=== PATIENT | female | born 1990 ===

== ENCOUNTER → 2025-07-28 | Outpatient (CLI) | payer BC, SELFPAY ==
[2025-07-28 12:13] LABS: Collection Type, Urine Clean Catch
[2025-07-28 12:32] LABS: Basophils # (Auto) 0.0 Thou/mm3 (0.0-0.2); Basophils % (Auto) 0 % (0-2.5); Eosinophils # (Auto) 0.1 Thou/mm3 (0.0-0.5); Eosinophils % (Auto) 1 % (0-10); Hematocrit 39.5 % (36.0-46.0); Hemoglobin 12.3 g/dL (12.0-16.0); Immature Granulocytes Auto 0.06 Thou/mm3 (0.00-0.00); Lymphocytes # (Auto) 2.1 Thou/mm3 (1.0-4.8); Lymphocytes % (Auto) 26 % (10-50); Mean Corpuscular HGB Conc 31.1 g/dl (31.0-37.0); Mean Corpuscular Hemoglobin 24.6 pg (25.0-35.0); Mean Corpuscular Volume 79 fL (80-100); Monocytes # (Auto) 0.3 Thou/mm3 (0.0-0.8); Monocytes % (Auto) 4 % (0-12); Neutrophils # (Auto) 5.5 Thou/mm3 (1.8-7.7); Neutrophils % (Auto) 69 % (37-80); Nucleated Red Blood Cell # 0.00 Thou/mm3 (0.00-0.00); Nucleated Red Blood Cell % 0 /100 WBC (0); Platelet Count 218 Thou/mm3 (140-440); RDW Standard Deviation 41.8 fL (36.4-46.3); Red Blood Count 5.01 Miln/mm3 (4.00-5.20); White Blood Count 7.9 Thou/mm3 (3.6-11.0)
[2025-07-28 12:39] LABS: Glucose Estimated Average 192 mg/dL (80-131); Hemoglobin A1C 8.3 % Hgb (4.8-6.0)
[2025-07-28 12:44] LABS: Bilirubin,Urine Negative (Negative); Blood,Urine 3+ (Negative); Clarity,Urine Clear (Clear/Hazy); Color,Urine Lt-Yellow (Lt Yel-Yel); Culture Indicated,Urine Not Indicated; Glucose, Urine Negative (Negative); Ketones,Urine Negative (Negative); Leukocyte Esterase,Urine Negative (Negative); Nitrite,Urine Negative (Negative); PH,Urine 7.0 (5.0-7.0); Protein,Urine Negative (Neg - Trace); RBC,Urine 2 /hpf (0-3); Specific Gravity,Urine 1.012 (1.001-1.035); Squamous Epithelial Cell,Urine 5 /hpf (0-5); Urobilinogen,Urine Negative mg/dL (0.0-1.0); WBC,Urine 2 /hpf (0-5)
[2025-07-28 12:46] LABS: Alanine Aminotransferase 47 U/L (10-49); Albumin, Serum 4.1 gm/dL (3.5-5.0); Albumin/Globulin Ratio 2.2 (1.2-2.2); Alkaline Phosphatase 57 U/L (46-116); Anion Gap 8 (7-16); Aspartate Amino Transferase 38 U/L (0-34); BUN/Creatinine Ratio 13 Ratio (12-20); Bilirubin,Total 0.3 mg/dL (0.3-1.2); Blood Urea Nitrogen 8 mg/dL (9-23); Calcium 9.3 mg/dL (8.3-10.6); Calcium (Corrected) 9.3 mg/dL (8.5-10.1); Carbon Dioxide 25.6 mMol/L (20.0-31.0); Cardiac Risk Estimate 3.8 RATIO (3.7-5.6); Chloride 105 mMol/L (98-107); Cholesterol 199 mg/dL (132-200); Creatinine (Component) 0.6 mg/dL (0.6-1.3); Globulin 1.9 gm/dL (2.3-3.5); Glucose 156 mg/dL (74-106); HDL Cholesterol 53 mg/dL (40-60); LDL Cholesterol,Calculated 122 mg/dL (0-130); Osmolality,Calculated 278 (275-295); Potassium 4.3 mMol/L (3.4-5.1); Sodium 139 mMol/L (136-145); Thyroid Stimulating Hormone 0.67 uIU/mL (0.55-4.78); Total Protein 6.0 gm/dL (5.7-8.2); Triglycerides 122 mg/dL (30-150); eGFR > 60 See Note
[2025-07-28 12:48] LABS: Vitamin D 25 Hydroxy Total 12.9 ng/mL (7.3-40.2)
== END | disposition home or self-care (01) ==
PROVIDERS: PCP Family Medicine; Referring Provider Registered Nurse; Visit Provider Registered Nurse
DX: Z00.00 Encounter for general adult medical examination without abnormal findings (principal)
CPT/HCPCS: 36415; 80053; 80061; 81001; 82306; 83036; 84443; 85025

== ENCOUNTER 2025-09-12 11:10 | Emergency (ER) | payer BC, SELFPAY ==
[2025-09-12 11:34] VITALS: BP 132/80; PULSE 65; RESP 18; TEMP 36.8; O2SAT 97; BMI 43.1
--- NOTE | 2025-09-12 13:08 | XR_ITS ---
Examination: CT abdomen with intravenous contrast CT pelvis with intravenous contrast 2-D coronal reconstructions 2-D sagittal reconstructions Date and time of exam: September 12, 2025, 1534 hours INDICATIONS: Right lower quadrant abdominal pain beginning yesterday. CTDI: vol (mGy) 11.6 DLP: (mGycm) 629 Technique: Multiple axial sections of the abdomen and pelvis have been obtained. 64 slice high-resolution scanner used. 3 mm axial sections have been obtained, post intravenous injection 60 cc [id number] 2-D sagittal, coronal reconstructions obtained. Low dose protocols were performed. One or more of the following dose reduction techniques were used; automated exposure control, adjustment of the mA and/or KV according to patient size, use of iterative reconstruction technique. Findings: Significant hepatomegaly, 24 cm, diffuse fatty infiltration throughout the liver Splenomegaly 14 cm Contracted gallbladder No pancreatic or adrenal mass. No renal or ureteral calculi, no hydronephrosis Aorta normal size Normal appendix No bowel obstruction No diverticulitis Anteverted uterus No adnexal or uterine mass Contracted urinary bladder The osseous structures are intact IMPRESSION: Hepatomegaly, 24 cm diffuse fatty infiltration throughout the liver, splenomegaly 14 cm No gallstones, no common bile duct stones noted Negative for pancreatitis No renal or ureteral calculi, no hydronephrosis Normal appendix
--- NOTE | 2025-09-12 13:09 | EDNOTE_ITS ---
ED Abdominal Pain RME/HPI General Chief Complaint: Abdominal Pain Stated complaint: RUQ PAIN SINCE YESTERDAY Time seen by provider: 09/12/25 12:44 Arrival date/time: 09/12/25 11:10 35-year-old female patient came in for evaluation regarding right lower quadrant pain. Patient had a right lower quadrant pain since yesterday, described as dull ache, severity moderate. Patient denies any fever no vomiting no diarrhea no constipation no dysuria no hematuria. Patient was recently diagnosed with diabetes mellitus. No other complaints noted. Related Data Home Medications ?Medication ?Instructions ?Recorded ?Confirmed ferrous sulfate 325 mg (65 mg 325 mg PO BID 09/18/18 1 11/18/17 iron) tablet (iron) vit no.95-ferrous 1 tab PO QDAY 09/18/1808/30 fumarate 28 mg-folic acid 800 mcg tablet () Previous Rx's ?Medication ?Instructions ?Recorded hydrocodone 5 mg-acetaminophen 300 1 tab PO QID PRN pa in #20 tabs 09/25/18 mg tablet (Vicodin) docusate sodium 100 mg capsule 100 mg PO BID #20 caps 09/27/18 (Colace) ibuprofen 800 mg tablet 800 mg PO TID PRN pain #30 t abs 09/27/18 butenafine 1 % topical cream 1 applicatio topical BID #30 grams 11/02/19 itraconazole 200 mg tablet 200 mg PO BID #14 tabs 03/17 dicyclomine 20 mg tablet 20 mg PO QID PRN abdominal p ain 09/12/25 #30 tabs polyethylene glycol 3350 17 gram 17 g PO QDAY PRN cons tipation #14 09/12/25 oral powder packet (Miralax) ea Allergies Allergy/AdvReac Type Severity Reaction Status Date / Time No Known Allergies Allergy Verified 09/12/25 11:13 Review of Systems Review of Systems Narrative Review of Systems: Review of system reviewed and within normal limits except mentioned in HPI ED Exam Narrative Physical exam: VITAL SIGNS: Reviewed. GENERAL APPEARANCE: Alert and interactive, follows commands, no acute distress, HEAD AND FACE: Non-traumatic. ENT: PERRL, pink conjunctivitis, eyelid no trauma, Mucous membrane moist. NECK: Supple, nontender, no nuchal rigidity. CHEST: No tenderness, no crepitus, no paradoxical movement, no retractions. LUNGS: Clear, well ventilated, symmetric, no rales, no wheezing, no ronchi, no stridor, good breath sounds bilaterally. HEART: Regular rate, regular rhythm, no murmur, no gallops. ABDOMEN: Soft, positive bowel sounds, nondistended, no guarding, right lower quadrant tenderness, no rebound, no masses, RECTAL: Deferred. GENITAL: Deferred. NEUROLOGICAL: Gross motor function intact sensory function intact, Appropriate for age. MUSCULOSKELETAL: low back nontender, full range of motion. EXTREMITIES: Nontender, full range of motion. SKIN: Color pink, dry, no rash, no lacerations, no abrasions, no contusions. LYMPHATICS: Deferred. Course Quality Measures none Orders Category Date Time Status CT Screening NOW Care 09/12/25 13:[address] abdomen pelvis w con Stat Exams 09/12/25 13:08 Completed US pelvic complete Stat Exams 09/12/25 16:40 Completed CBC Stat Lab 09/12/25 13:27 Completed Comprehensive Metabolic Panel Stat Lab 09/12/25 13:27 Completed HCG Qualitative,Urine Stat Lab 09/12/25 13:30 Completed Lipase Stat Lab 09/12/25 13:27 Completed Prothrombin Time with INR Stat Lab 09/12/25 13:27 Completed UA, C/S IF [Urinalysis, C/S if Indicated] Stat Lab 09/12/25 13:30 Completed Ketorolac Inj [Toradol Inj] Med 09/12/25 16:31 Discontinued 30 mg IVP X1 ONE Magnesium Citrate Liqd [Citrate of Magnesia Liqd] Med 09/12/25 16:41 Discontinued 300 ml PO X1 ONE Vital Signs Vital signs: Vital Signs Temperature 98.2 F 09/12/25 11:34 Pulse Rate 65 09/12/25 11:34 Respiratory Rate 18 09/12/25 11:34 Blood Pressure 132/80 H 09/12/25 11:34 Pulse Oximetry (%) 97 09/12/25 11:34 Oxygen Delivery Method Room Air 09/12/25 11:34 Abdominal Pain MDM MDM Narrative MDM Narrative:: 09/12/25 11:10 35-year-old female patient came in for evaluation regarding right lower quadrant pain. Patient had a right lower quadrant pain since yesterday, described as dull ache, severity moderate. Patient denies any fever no vomiting no diarrhea no constipation no dysuria no hematuria. Patient was recently diagnosed with diabetes mellitus. No other complaints noted. Patient's workup today all came back unremarkable CBC no leukocytosis, urinalysis no UTI, CMP unremarkable. Ultrasound of the pelvic showed no acute pathology, CT scan of the abdomen pelvis showed Hepatomegaly, 24 cm diffuse fat ty infiltration throughout the liver, splenomegaly 14 cm No gallstones, no common bile duct stones noted Negative for pancreatitis No renal or ureteral calculi, no hydronephrosis Normal appendix Results discussed with the patient. Patient data External records reviewed:: None Clinical information provided by:: patient Social determinants that could affect healthcare access:: none Patient has the following chronic illnesses:: None How is presenting disease/condition affected by chronic disease/condition?: no chronic disease Evaluation data The following diagnostics were reviewed and interpreted by me:: lab results and radiology exam(s) Lab and/or radiology exams considered but not ordered:: None Interpretation Summary: See MDM Medications / Prescriptions Medications or Prescriptions considered but not ordered:: None Medication administrations:: Medication Administration History Discontinued Medications Ketorolac Tromethamine (Ketorolac Inj 30 Mg/Ml Vial) 30 mg IVP X1 ONE Stop: 09/12/25 16:32 Last Admin: 09/12/25 16:40 Dose: 30 mg Documented By: VL Magnesium Citrate (Magnesium Citrate 300 Ml Btl) 300 ml PO X1 ONE Stop: 09/12/25 16:42 Last Admin: 09/12/25 17:33 Dose: 300 ml Documented By: Toradol magnesium Consultations Consultation(s) initiated? (list below): No Diagnosis Differential diagnosis abdominal pain: abdominal pain, constipation, diverticulitis and small bowel obstruction Most likely diagnosis given after review of the tests above:: Abdominal pain, fatty liver, splenomegaly Admission Indicated Admission indicated?: not indicated Admission Request Was there a request for admission?: No Disposition Plan Disposition Plan: Discharge Discharge Attestation Discharge Attestation: The patient was given an opportunity to ask questions and understood the discharge instructions. Discharge instructions specifically effects, indications for sooner follow up or return to the emergency department, and the expected course of current diagnosis. Patient condition: Stable Discharge Plan Plan Patient Disposition: HOME (Self Care) Discharge Disposition comment: Stable Prescriptions/Referrals Prescriptions/Med Rec: New dicyclomine 20 mg tablet 20 mg PO QID PRN (Reason: abdominal pain) Qty: 30 0RF polyethylene glycol 3350 [Miralax] 17 gram powder in packet 17 g PO QDAY PRN (Reason: constipation) Qty: 14 0RF No Action ferrous sulfate [iron] 325 mg (65 mg iron) Tablet 325 mg PO BID PNV no.95-ferrous fumarate-FA [] 28 mg iron- 800 mcg Tablet 1 tab PO QDAY hydrocodone-acetaminophen [Vicodin] 5-300 mg tablet 1 tab PO QID MDD 4 PRN (Reason: pain) Qty: 20 0RF ibuprofen 800 mg tablet 800 mg PO TID PRN (Reason: pain) Qty: 30 0RF docusate sodium [Colace] 100 mg capsule 100 mg PO BID Qty: 20 0RF butenafine 1 % cream 1 applicatio TOPICAL BID Qty: 30 0RF Rx Instructions: apply to cleansed affected area and immediate surrounding areas itraconazole 200 mg tablet 200 mg PO BID Qty: 14 0RF Rx Instructions: must administer with a meal/food Referrals: No Primary/Family,Physician [Primary Care Provider] - In 1 week Problem List Clinical Impression: Abdominal pain, Fatty liver, Splenomegaly Patient/Caregiver Discharge Instructions Discharge Activity: activity as tolerated Education Materials: Abdominal Pain Additional Instructions: Thank you for the opportunity for serving you today. You are stable for discharged . You are advised to: Follow-up with your PCP in 1 to 2 days regarding your fatty liver and incidental finding of splenomegaly Return to ED for worsening of symptoms Increase oral fluids Take medication as prescribed Print Language: Lithuanian Stand Alone Forms: Tracy Award Info., Patient Portal Info Letter MAURICE/JERICHO Supervising Physician MAURICE/JERICHO Supervising Physician: MD Robert
[2025-09-12 13:43] LABS: Collection Type, Urine Clean Catch
[2025-09-12 13:58] LABS: Basophils # (Auto) 0.0 Thou/mm3 (0.0-0.2); Basophils % (Auto) 0 % (0-2.5); Eosinophils # (Auto) 0.1 Thou/mm3 (0.0-0.5); Eosinophils % (Auto) 2 % (0-10); Hematocrit 40.8 % (36.0-46.0); Hemoglobin 12.4 g/dL (12.0-16.0); Immature Granulocytes Auto 0.01 Thou/mm3 (0.00-0.00); Lymphocytes # (Auto) 2.2 Thou/mm3 (1.0-4.8); Lymphocytes % (Auto) 35 % (10-50); Mean Corpuscular HGB Conc 30.4 g/dl (31.0-37.0); Mean Corpuscular Hemoglobin 23.9 pg (25.0-35.0); Mean Corpuscular Volume 79 fL (80-100); Monocytes # (Auto) 0.3 Thou/mm3 (0.0-0.8); Monocytes % (Auto) 5 % (0-12); Neutrophils # (Auto) 3.6 Thou/mm3 (1.8-7.7); Neutrophils % (Auto) 57 % (37-80); Nucleated Red Blood Cell # 0.00 Thou/mm3 (0.00-0.00); Nucleated Red Blood Cell % 0 /100 WBC (0); Platelet Count 204 Thou/mm3 (140-440); RDW Standard Deviation 42.3 fL (36.4-46.3); Red Blood Count 5.19 Miln/mm3 (4.00-5.20); White Blood Count 6.3 Thou/mm3 (3.6-11.0)
[2025-09-12 14:02] LABS: Bacteria,Urine Rare; Bilirubin,Urine Negative (Negative); Blood,Urine 2+ (Negative); Clarity,Urine Clear (Clear/Hazy); Color,Urine Lt-Yellow (Lt Yel-Yel); Culture Indicated,Urine Not Indicated; Glucose, Urine Negative (Negative); Ketones,Urine 1+ (Negative); Leukocyte Esterase,Urine Negative (Negative); Nitrite,Urine Negative (Negative); PH,Urine 6.0 (5.0-7.0); Protein,Urine Negative (Neg - Trace); RBC,Urine 5 /hpf (0-3); Specific Gravity,Urine 1.012 (1.001-1.035); Squamous Epithelial Cell,Urine 4 /hpf (0-5); Urobilinogen,Urine Negative mg/dL (0.0-1.0); WBC,Urine 3 /hpf (0-5)
[2025-09-12 14:03] LABS: HCG Qualitative,Urine Negative
[2025-09-12 14:04] LABS: INR 1.0 (0.9-1.3); Prothrombin Time 10.3 Seconds (9.0-12.2)
[2025-09-12 14:09] LABS: Alanine Aminotransferase 29 U/L (10-49); Albumin, Serum 4.7 gm/dL (3.5-5.0); Albumin/Globulin Ratio 2.9 (1.2-2.2); Alkaline Phosphatase 47 U/L (46-116); Anion Gap 11 (7-16); Aspartate Amino Transferase 18 U/L (0-34); BUN/Creatinine Ratio 14 Ratio (12-20); Bilirubin,Total 0.3 mg/dL (0.3-1.2); Blood Urea Nitrogen 7 mg/dL (9-23); Calcium 8.9 mg/dL (8.3-10.6); Calcium (Corrected) 8.9 mg/dL (8.5-10.1); Carbon Dioxide 25.2 mMol/L (20.0-31.0); Chloride 108 mMol/L (98-107); Creatinine (Component) 0.5 mg/dL (0.6-1.3); Estimated Creatinine Clearance 177.1 mL/min (>60); Globulin 1.6 gm/dL (2.3-3.5); Glucose 94 mg/dL (74-106); Lipase 27 U/L (12-53); Osmolality,Calculated 284 (275-295); Potassium 3.9 mMol/L (3.4-5.1); Sodium 144 mMol/L (136-145); Total Protein 6.3 gm/dL (5.7-8.2); eGFR > 60 See Note
[2025-09-12] MEDS: KETOROLAC INJ 30 MG/ML VIAL IVP (16:40)
--- NOTE | 2025-09-12 16:40 | XR_ITS ---
Examination: Pelvic ultrasound, transabdominal, complete Technique: Transabdominal ultrasound of the pelvis performed using grayscale imaging Date and time of exam: September 12, 2025, 1846 hours INDICATIONS: Generalized abdominal pelvic pain beginning 2 days ago FINDINGS: Uterus 7.0 cm endometrial stripe 0.5 cm No uterine mass or intrauterine gestation Ovaries obscured by bowel gas IMPRESSION: Limited study No uterine mass or intrauterine gestation
[2025-09-12] MEDS: MAGNESIUM CITRATE 300 ML BTL PO (17:33)
== END 2025-09-12 21:05 | disposition home or self-care (01) ==
PROVIDERS: Nurse Practitioner Family; Emergency Provider Family Medicine
DX: R10.9 Unspecified abdominal pain (principal); E11.9 Type 2 diabetes mellitus without complications
CPT/HCPCS: 36415; 74177; 76856; 80053; 81001; 81025; 83690; 85025; 85610; 96374; 99283; A4649; J1885; Q9967; A9270